=== PATIENT | male | born 1975 | race Caucasian/White ===

== ENCOUNTER 2017-12-03 19:44 | Observation (INO) ==
[2017-12-03] MEDS ORDERED: LOMOTIL PO PRN (22:24)
[2017-12-03] MEDS ORDERED: NS 1000 ML 1,000 ML IV ONE (22:24)
[2017-12-03 22:46] LABS: BASOPHILS % (AUTO) 0.3 % (0.2-1.0); EOSINOPHILS % (AUTO) 0.1 % (0.9-2.9); HEMATOCRIT 39.7 % (42.0-54.0); HEMOGLOBIN 13.6 g/dL (13.5-18.0); LYMPHOCYTES # (AUTO) 0.8 X10^3/uL (1.3-2.9); LYMPHOCYTES % (AUTO) 15.8 % (21.0-51.0); MEAN CORPUSCULAR HEMOGLOBIN 28.1 pg (27.0-34.0); MEAN CORPUSCULAR HGB CONC 34.3 g/dL (33.0-35.0); MEAN PLATELET VOLUME 6.7 fL (7.4-11.0); MONOCYTES # (AUTO) 0.6 x10^3/uL (0.3-0.8); MONOCYTES % (AUTO) 11.1 % (0.0-13.0); NEUTROPHILS # (AUTO) 3.8 x10^3/uL (2.2-4.8); NEUTROPHILS % (AUTO) 72.7 % (42.0-75.0); PLATELET COUNT 226 X10^3/uL (150.0-450.0); RED BLOOD COUNT 4.84 X10^6/uL (4.7-6.0); RED CELL DISTRIBUTION WIDTH 13.4 % (11.6-16.5); WHITE BLOOD COUNT 5.3 X10^3/uL (3.6-10.0)
[2017-12-03] MEDS ORDERED: TYLENOL SUPP 650 MG PR PRN (22:58)
[2017-12-03 23:01] LABS: ALANINE AMINOTRANSFERASE 28 Units/L (12-78); ALBUMIN 3.2 g/dL (3.4-5.0); ALKALINE PHOSPHATASE 85 Units/L (46-116); ASPARTATE AMINO TRANSFERASE 21 Units/L (15-37); BLOOD UREA NITROGEN 8 mg/dL (7-18); CALCIUM 8.3 mg/dL (8.5-10.1); CARBON DIOXIDE 28.7 mmol/L (21-32); CHLORIDE 101 mmol/L (98-107); COR CA(FOR HYPOALB) 8.9 mg/dL (8.5-10.1); CREATININE 1.43 mg/dL (0.70-1.30); SODIUM 137 mmol/L (136-145); TOTAL PROTEIN 6.7 g/dL (6.4-8.2); eGFR NON BLACK RACES 58 (>60)
[2017-12-03 23:21] LABS: ERYTHROCYTE SEDIMENTATION RATE 24 MM/HOUR (0-15)
[2017-12-03] MEDS: BENTYL CAP 10 MG PO SCH (23:36)
[2017-12-03] MEDS: ZOFRAN INJ 4 MG VIAL IVP PRN (23:36)
[2017-12-03] MEDS: TYLENOL 325 MG TAB PO PRN (23:37)
[2017-12-04] MEDS ORDERED: NS 1000 ML 1,000 ML ONE ×2 (00:49→05:58)
[2017-12-04] MEDS: NS 1000 ML 1,000 ML with MVI INJ (ADULT) 1 ML IV SCH ×10 (00:57→19:21)
[2017-12-04 01:10] LABS: BILIRUBIN,URINE NEGATIVE (NEGATIVE); BLOOD/HEMOGLOBIN,URINE NEGATIVE (NEGATIVE); GLUCOSE, URINE NEGATIVE (NEGATIVE); KETONES,URINE NEGATIVE (NEGATIVE); LEUKOCYTE ESTERASE ,URINE 1+ (NEGATIVE); NITRITES,URINE NEGATIVE (NEGATIVE); PROTEIN,URINE 1+ (NEGATIVE); UROBILINOGEN,URINE NORMAL (NORMAL)
[2017-12-04 01:19] LABS: APPEARANCE,URINE CLEAR (CLEAR); COLOR,URINE YELLOW (YELLOW); RBC,URINE NONE SEEN /HPF (NONE SEEN)
[2017-12-04 01:20] LABS: BACTERIA,URINE NEGATIVE /HPF (NEGATIVE); MUCUS,URINE FEW /HPF (NEGATIVE); SQUAMOUS EPITHELIAL CELL,UR RARE /HPF (NEGATIVE)
[2017-12-04 01:48] LABS: STOOL FOR WBC POSITIVE (NEGATIVE)
[2017-12-04 02:21] LABS: CRYPTOSPORIDIUM PARVUM ANTIGEN NEGATIVE (NEGATIVE); GIARDIA LAMBLIA ANTIGEN NEGATIVE (NEGATIVE)
[2017-12-04 02:26] VITALS: BMI 43.5
[2017-12-04 06:06] LABS: BASOPHILS % (AUTO) 0.5 % (0.2-1.0); EOSINOPHILS % (AUTO) 0.5 % (0.9-2.9); HEMATOCRIT 37.3 % (42.0-54.0); HEMOGLOBIN 12.8 g/dL (13.5-18.0); LYMPHOCYTES # (AUTO) 1.2 X10^3/uL (1.3-2.9); LYMPHOCYTES % (AUTO) 22.6 % (21.0-51.0); MEAN CORPUSCULAR HEMOGLOBIN 28.3 pg (27.0-34.0); MEAN CORPUSCULAR HGB CONC 34.2 g/dL (33.0-35.0); MEAN CORPUSCULAR VOLUME 82.6 fL (80.0-100.0); MEAN PLATELET VOLUME 7.1 fL (7.4-11.0); MONOCYTES # (AUTO) 0.7 x10^3/uL (0.3-0.8); MONOCYTES % (AUTO) 13.3 % (0.0-13.0); NEUTROPHILS # (AUTO) 3.4 x10^3/uL (2.2-4.8); NEUTROPHILS % (AUTO) 63.1 % (42.0-75.0); PLATELET COUNT 212 X10^3/uL (150.0-450.0); RED BLOOD COUNT 4.52 X10^6/uL (4.7-6.0); RED CELL DISTRIBUTION WIDTH 13.2 % (11.6-16.5); WHITE BLOOD COUNT 5.3 X10^3/uL (3.6-10.0)
[2017-12-04 06:21] LABS: ALANINE AMINOTRANSFERASE 26 Units/L (12-78); ALBUMIN 2.9 g/dL (3.4-5.0); ALKALINE PHOSPHATASE 75 Units/L (46-116); ASPARTATE AMINO TRANSFERASE 21 Units/L (15-37); BLOOD UREA NITROGEN 7 mg/dL (7-18); CALCIUM 8.1 mg/dL (8.5-10.1); CARBON DIOXIDE 27.8 mmol/L (21-32); CHLORIDE 104 mmol/L (98-107); CREATININE 1.25 mg/dL (0.70-1.30); SODIUM 139 mmol/L (136-145); TOTAL PROTEIN 5.9 g/dL (6.4-8.2); eGFR NON BLACK RACES > 60 (>60)
[2017-12-04] MEDS: TYLENOL 325 MG TAB PO PRN (06:41)
[2017-12-04] MEDS: ZOFRAN INJ 4 MG VIAL IVP PRN ×2 (06:42→11:37)
[2017-12-04] MEDS: BENTYL CAP 10 MG PO SCH ×4 (09:48→20:29)
[2017-12-04] MEDS: EFFEXOR XR 37.5 MG CAP PO SCH (14:19)
[2017-12-04] MEDS: ZESTORETIC 10/ 12.5MG PO SCH (14:19)
[2017-12-04] MEDS: TOPROL XL PO SCH (14:19)
[2017-12-04] MEDS ORDERED: KLONOPIN TAB 0.5 MG PO SCH (21:00)
[2017-12-05 06:13] LABS: BASOPHILS % (AUTO) 0.3 % (0.2-1.0); EOSINOPHILS # (AUTO) 0.1 x10^3/uL (0.0-0.2); EOSINOPHILS % (AUTO) 1.5 % (0.9-2.9); HEMATOCRIT 35.8 % (42.0-54.0); HEMOGLOBIN 12.3 g/dL (13.5-18.0); LYMPHOCYTES # (AUTO) 1.2 X10^3/uL (1.3-2.9); LYMPHOCYTES % (AUTO) 24.1 % (21.0-51.0); MEAN CORPUSCULAR HEMOGLOBIN 28.1 pg (27.0-34.0); MEAN CORPUSCULAR HGB CONC 34.4 g/dL (33.0-35.0); MEAN CORPUSCULAR VOLUME 81.9 fL (80.0-100.0); MONOCYTES # (AUTO) 0.7 x10^3/uL (0.3-0.8); NEUTROPHILS # (AUTO) 3.2 x10^3/uL (2.2-4.8); NEUTROPHILS % (AUTO) 61.1 % (42.0-75.0); PLATELET COUNT 215 X10^3/uL (150.0-450.0); RED BLOOD COUNT 4.37 X10^6/uL (4.7-6.0); RED CELL DISTRIBUTION WIDTH 13.4 % (11.6-16.5); WHITE BLOOD COUNT 5.2 X10^3/uL (3.6-10.0)
[2017-12-05 06:36] LABS: ALANINE AMINOTRANSFERASE 26 Units/L (12-78); ALBUMIN 2.7 g/dL (3.4-5.0); ALKALINE PHOSPHATASE 68 Units/L (46-116); ASPARTATE AMINO TRANSFERASE 20 Units/L (15-37); BLOOD UREA NITROGEN 5 mg/dL (7-18); CALCIUM 8.2 mg/dL (8.5-10.1); CARBON DIOXIDE 26.7 mmol/L (21-32); CHLORIDE 104 mmol/L (98-107); COR CA(FOR HYPOALB) 9.2 mg/dL (8.5-10.1); CREATININE 0.99 mg/dL (0.70-1.30); SODIUM 138 mmol/L (136-145); TOTAL PROTEIN 5.9 g/dL (6.4-8.2); eGFR NON BLACK RACES > 60 (>60)
[2017-12-05] MEDS: BENTYL CAP 10 MG PO SCH (09:06)
[2017-12-05] MEDS: TOPROL XL PO SCH (09:07)
[2017-12-05] MEDS: EFFEXOR XR 37.5 MG CAP PO SCH (09:07)
[2017-12-05] MEDS: ZESTORETIC 10/ 12.5MG PO SCH (09:07)
[2017-12-05 13:16] VITALS: BP 108/71
== END 2017-12-05 14:00 | disposition home or self-care (01) ==
LOC: MED/SURG
PROVIDERS: ADMIT Internal Medicine; ATTEND Internal Medicine
DX: R19.7 Diarrhea, unspecified; R50.9 Fever, unspecified; R79.82 Elevated C-reactive protein (CRP); R70.0 Elevated erythrocyte sedimentation rate; R94.4 Abnormal results of kidney function studies; R19.5 Other fecal abnormalities; K52.89 Other specified noninfective gastroenteritis and colitis; R11.2 Nausea with vomiting, unspecified
CPT/HCPCS: 36415; 80053; 81001; 82270; 82670; 83630; 84403; 85025; 85652; 86140; 87045; 87328; 87329; 87427; 87449; 87493; 87899; 96374; A4216; A4222; G0378; J2405; J3490; J7030

== ENCOUNTER 2021-11-24 16:34 | Observation (INO) ==
[2021-11-24] MEDS ORDERED: NS 1,000 ML IV 1,000 ML IV SCH (17:00)
[2021-11-24 18:43] LABS: ALANINE AMINOTRANSFERASE 22 Units/L (12-78); ALBUMIN 3.3 g/dL (3.4-5.0); ALKALINE PHOSPHATASE 90 Units/L (46-116); ASPARTATE AMINO TRANSFERASE 29 Units/L (15-37); BLOOD UREA NITROGEN 24 mg/dL (7-18); CALCIUM 8.2 mg/dL (8.5-10.1); CARBON DIOXIDE 23.8 mmol/L (21-32); CHLORIDE 102 mmol/L (98-107); COR CA(FOR HYPOALB) 8.8 mg/dL (8.5-10.1); CREATININE 1.47 mg/dL (0.70-1.30); SODIUM 135 mmol/L (136-145); TOTAL PROTEIN 7.1 g/dL (6.4-8.2); eGFR NON BLACK RACES 55 (>60)
[2021-11-24 18:45] LABS: BASOPHILS % (AUTO) 0.5 % (0.2-1.0); EOSINOPHILS # (AUTO) 0.1 x10^3/uL (0.0-0.2); EOSINOPHILS % (AUTO) 2.1 % (0.9-2.9); HEMATOCRIT 33.3 % (42.0-54.0); HEMOGLOBIN 10.8 g/dL (13.5-18.0); LYMPHOCYTES # (AUTO) 0.9 X10^3/uL (1.3-2.9); LYMPHOCYTES % (AUTO) 15.8 % (21.0-51.0); MEAN CORPUSCULAR HEMOGLOBIN 23.6 pg (27.0-34.0); MEAN CORPUSCULAR HGB CONC 32.5 g/dL (33.0-35.0); MEAN CORPUSCULAR VOLUME 72.6 fL (80.0-100.0); MEAN PLATELET VOLUME 8.1 fL (7.4-11.0); MONOCYTES # (AUTO) 0.9 x10^3/uL (0.3-0.8); MONOCYTES % (AUTO) 15.2 % (0.0-13.0); NEUTROPHILS # (AUTO) 3.9 x10^3/uL (2.2-4.8); NEUTROPHILS % (AUTO) 66.4 % (42.0-75.0); RED BLOOD COUNT 4.58 X10^6/uL (4.7-6.0); RED CELL DISTRIBUTION WIDTH 17.3 % (11.6-16.5); WHITE BLOOD COUNT 5.9 X10^3/uL (3.6-10.0)
[2021-11-24] MEDS ORDERED: BENTYL CAP 10 MG PO ONE (18:52)
[2021-11-24 18:54] LABS: MICROCYTOSIS SLIGHT; PLATELET MORPHOLOGY COMMENT NORMAL (NORMAL)
[2021-11-24 18:54] LABS: CRYPTOSPORIDIUM PARVUM ANTIGEN NEGATIVE (NEGATIVE); GIARDIA LAMBLIA ANTIGEN NEGATIVE (NEGATIVE)
[2021-11-24 18:58] LABS: BILIRUBIN,URINE NEGATIVE (NEGATIVE); BLOOD/HEMOGLOBIN,URINE NEGATIVE (NEGATIVE); GLUCOSE, URINE NEGATIVE (NEGATIVE); KETONES,URINE NEGATIVE (NEGATIVE); LEUKOCYTE ESTERASE ,URINE NEGATIVE (NEGATIVE); NITRITES,URINE NEGATIVE (NEGATIVE); PROTEIN,URINE 2+ (NEGATIVE); UROBILINOGEN,URINE NORMAL (NORMAL)
[2021-11-24 18:59] LABS: APPEARANCE,URINE CLEAR (CLEAR); COLOR,URINE YELLOW (YELLOW)
[2021-11-24 19:09] LABS: BACTERIA,URINE TRACE /HPF (NEGATIVE); RBC,URINE NONE SEEN /HPF (0-3); SQUAMOUS EPITHELIAL CELL,UR RARE /HPF (NEGATIVE)
[2021-11-24] MEDS ORDERED: NS 1,000 ML IV 1,000 ML IV ONE (23:57)
[2021-11-25] MEDS ORDERED: NS 1,000 ML IV 1,000 ML IV ONE (01:08)
[2021-11-25] MEDS: NS 1,000 ML IV 1,000 ML IV SCH ×3 (02:30→20:05)
[2021-11-25 05:15] LABS: BASOPHILS % (AUTO) 0.6 % (0.2-1.0); EOSINOPHILS # (AUTO) 0.1 x10^3/uL (0.0-0.2); EOSINOPHILS % (AUTO) 2.7 % (0.9-2.9); HEMATOCRIT 27.3 % (42.0-54.0); HEMOGLOBIN 9.1 g/dL (13.5-18.0); LYMPHOCYTES # (AUTO) 0.8 X10^3/uL (1.3-2.9); LYMPHOCYTES % (AUTO) 20.6 % (21.0-51.0); MEAN CORPUSCULAR HEMOGLOBIN 24.3 pg (27.0-34.0); MEAN CORPUSCULAR HGB CONC 33.5 g/dL (33.0-35.0); MEAN CORPUSCULAR VOLUME 72.6 fL (80.0-100.0); MEAN PLATELET VOLUME 7.3 fL (7.4-11.0); MONOCYTES # (AUTO) 0.6 x10^3/uL (0.3-0.8); MONOCYTES % (AUTO) 15.5 % (0.0-13.0); NEUTROPHILS # (AUTO) 2.4 x10^3/uL (2.2-4.8); NEUTROPHILS % (AUTO) 60.6 % (42.0-75.0); RED BLOOD COUNT 3.76 X10^6/uL (4.7-6.0); RED CELL DISTRIBUTION WIDTH 17.3 % (11.6-16.5); WHITE BLOOD COUNT 3.9 X10^3/uL (3.6-10.0)
[2021-11-25 05:22] LABS: ALANINE AMINOTRANSFERASE 15 Units/L (12-78); ALBUMIN 2.6 g/dL (3.4-5.0); ALKALINE PHOSPHATASE 70 Units/L (46-116); ASPARTATE AMINO TRANSFERASE 15 Units/L (15-37); BLOOD UREA NITROGEN 18 mg/dL (7-18); CALCIUM 7.4 mg/dL (8.5-10.1); CARBON DIOXIDE 24.4 mmol/L (21-32); CHLORIDE 105 mmol/L (98-107); COR CA(FOR HYPOALB) 8.5 mg/dL (8.5-10.1); CREATININE 1.33 mg/dL (0.70-1.30); MAGNESIUM 1.7 mg/dL (1.7-2.9); SODIUM 137 mmol/L (136-145); TOTAL PROTEIN 5.6 g/dL (6.4-8.2); eGFR NON BLACK RACES > 60 (>60)
[2021-11-25 05:54] LABS: ANISOCYTOSIS SLIGHT; HYPOCHROMASIA SLIGHT; MICROCYTOSIS SLIGHT; PLATELET MORPHOLOGY COMMENT NORMAL (NORMAL)
[2021-11-25 05:55] LABS: OVALOCYTES SLIGHT
[2021-11-25] MEDS ORDERED: POTASSIUM CHL 40 MEQ/NS 0.45% 500 ML IV PRN (05:58)
[2021-11-25] MEDS ORDERED: KLOR-CON PO PRN (05:58)
[2021-11-25] MEDS ORDERED: K-RIDER 10 MEQ/NS 100 ML 10 MEQ/100 ML BAG IV PRN (05:58)
[2021-11-25] MEDS ORDERED: POTASSIUM CHLORIDE LIQ 20 MEQ UDC PO PRN (05:58)
[2021-11-25] MEDS ORDERED: K-DUR TAB 20 MEQ PO PRN (05:58)
[2021-11-25] MEDS ORDERED: MICRO K EXTEN CAP 10 MEQ PO PRN (05:58)
[2021-11-25] MEDS ORDERED: POTASSIUM CHL 60 MEQ/NS 0.45% 500 ML IV PRN (05:58)
--- NOTE | 2021-11-25 06:11 | RAD ---
HISTORYAbdominal cramping, diarrheaSTUDYAP abdomenCOMPARISONNoneFINDINGSAbdominal gas pattern is nonspecific and nonobstructive. No abnormal masses or abnormal calcifications are identified. Postsurgical changes are present in the lower lumbar spine, lumbosacral junction and bilateral SI joints with hardware present. Regional skeleton is otherwise intact.IMPRESSIONUnremarkable AP abdomenElectronically signed by: CINDA DORAN (Nov 25, 2021 06:10:16)
[2021-11-25] MEDS: MAGNESIUM SULFATE 1 GRAM/100 mL PREMIX 1 G/100 ML BAG IV PRN ×2 (08:35→09:52)
[2021-11-25] MEDS: BENTYL CAP 10 MG PO SCH ×5 (11:20→21:21)
[2021-11-25] MEDS: LEVSIN/MAALOX/LIDOC VISC PO SCH ×4 (11:20→20:20)
[2021-11-25] MEDS: PEPCID 20 MG VIAL 20 MG in NS 50 ML IV 50 ML IV SCH ×2 (11:21→20:20)
[2021-11-25] MEDS: PROTONIX INJ 40 MG VIAL IVP SCH ×2 (11:22→20:20)
[2021-11-25] MEDS: CIPRO IV 400 MG PREMIX* 400 MG/200 ML IV.SOLN. IV SCH ×2 (12:49→20:20)
--- NOTE | 2021-11-25 13:12 | DR.UPDATE ---
H&P Update History and Physical Update: History and Physical reviewed and patient examined. Changes noted: NO Yes with the following: PATIENT WAS A DIRECT ADMISSION FOR TREATMENT OF DEHYDRATION, HYPOKALEMIA, AND INTRACTABLE DIARRHEA. ADDITIONALLY, PATIENT REPORTS WEIGHT LOSS. EXAMINATION REVEALED A 1X1 CM HARD MASS TO THE RIGHT SIDE SUBMANDIBULAR CERVICAL LYMPH NODE. ON ADMISSION, VITALS WERE: 97.8-72-18-100%-157/79. LABS WERE OBTAINED. WBC 5.9, RBC 4.58, HGB 10.8, HCT 33.3, PLT 233, SODIUM 137, POTASSIUM 3.7, CHLORIDE 102, BUN 24, CREATININE 1.47, GLUCOSE 96, CALCIUM 8.2, TOTAL BILI 0.40, AST 29, ALT 22, ALK PHOS 90, TOTAL PROTEIN 7.1, ALBUMIN 3.3. URINALYSIS WAS UNREMARKABLE. STOOL STUDIES WERE POSITIVE FOR OCCULT BLOOD AND WHITE CELLS. A STOOL CULTURE WAS SET UP. COVID-19, INFLUENZA, AND RSV WERE OBTAINED IN THE ER ON 11/23 AND WERE NEGATIVE. A KUB WAS OBTAINED AND WAS UNREMARKABLE. HE WAS STARTED ON NORMAL SALINE AT 80 ML/HR, CIPRO 400MG IV Q12H, PEPCID 20MG IV Q12H, PROTONIX 40MG IV BID, GI COCKTAIL 15ML PO BID, BENTYL 20MG PO QID, AND THE POTASSIUM AND MAGNESIUM PROTOCOLS. DURING THE NIGHT ON THE DAY OF ADMISSION, PATIENT WAS NOTED TO BE HYPOTENSIVE. HIS BLOOD PRESSURE WERE PERSISTENTLY RUNNING 80s/40s. HE WAS ADMINISTERED A NORMAL SALINE BOLUS X 2 LITERS. MAINTENANCE FLUIDS WERE THEN ORDERED TO RUN AT 175 ML/HR BY , THE CST PHYSICIAN. THIS MORNING, HIS BLOOD PRESSURE WAS 110/58. WE WILL DECREASE IV FLUIDS TO 125 ML/HR. WE WILL OBTAIN A SOFT TISSUE NECK CT WITH CONTRAST. OTHERWISE, WE WILL FOLLOW-UP WITH AM LABS AND CONTINUE TO MONITOR. TIME SPENT ON CLINICAL ASSESSMENT, REVIWING LABS AND IMAGING, DECISION MAKING, AND DOCUMENTATION GREATER THAN 75 MINUTES. H&P Reviewed: Yes Patient was examined?: Yes
--- NOTE | 2021-11-25 13:12 | CT ---
HISTORYRT SUBMANDIBULAR MASS .brAFFECTED SIDE KENA WITH BEEBEESSTUDYSOFT TISSUE NECK WITH CONCOMPARISONNoneTECHNIQUEMultiple axial images of the neck soft tissues were obtained with IV contrast. Coronal and sagittal reformats were made and reviewed. Dose reduction techniques included Automated Exposure Control (AEC) and adjustment of mA and kV.FINDINGSThe technologist placed a BB marker overlying the palpable abnormality. The BB marker is superficial to a soft tissue nodule inferior to the right parotid gland near the posterior angle of the mandible. This measures about 19 mm by 21 mm by 14 mm.This might lie within the substance of lower margin of the parotid gland and could be parotid origin tumor. Or it could be a large level 2 lymph node. This might require fine-needle aspiration for definitive diagnosis.There are other small lymph nodes in the left and right neck. These are evenly distributed and are not enlarged.Otherwise the salivary glands have normal size and enhancement.The thyroid has a normal size and configuration.No fluid in the sinuses or mucosal thickening to suggest sinusitis. There is no mastoid effusion. Small cyst in the right maxillary sinus.The adenoids, tonsils, soft palate, epiglottis, and prevertebral soft tissues are not enlarged. Vocal cords are symmetric near the midline.Lung apices are clear. No significant bone abnormality.IMPRESSION1. (21 mm) nodule in the right neck, see noteElectronically signed by: Hola Box (Nov 25, 2021 13:10:27)
[2021-11-25] MEDS ORDERED: NORCO 5/325 MG TAB PO PRN (19:50)
[2021-11-26] MEDS: NS 1,000 ML IV 1,000 ML IV SCH ×5 (01:35→22:00)
[2021-11-26 05:43] LABS: BASOPHILS % (AUTO) 0.7 % (0.2-1.0); EOSINOPHILS # (AUTO) 0.1 x10^3/uL (0.0-0.2); EOSINOPHILS % (AUTO) 2.8 % (0.9-2.9); HEMATOCRIT 28.7 % (42.0-54.0); HEMOGLOBIN 9.4 g/dL (13.5-18.0); LYMPHOCYTES # (AUTO) 1.1 X10^3/uL (1.3-2.9); LYMPHOCYTES % (AUTO) 27.5 % (21.0-51.0); MEAN CORPUSCULAR HEMOGLOBIN 23.7 pg (27.0-34.0); MEAN CORPUSCULAR HGB CONC 32.8 g/dL (33.0-35.0); MEAN CORPUSCULAR VOLUME 72.2 fL (80.0-100.0); MEAN PLATELET VOLUME 7.5 fL (7.4-11.0); MONOCYTES # (AUTO) 0.6 x10^3/uL (0.3-0.8); MONOCYTES % (AUTO) 15.5 % (0.0-13.0); NEUTROPHILS # (AUTO) 2.2 x10^3/uL (2.2-4.8); NEUTROPHILS % (AUTO) 53.5 % (42.0-75.0); RED BLOOD COUNT 3.98 X10^6/uL (4.7-6.0); RED CELL DISTRIBUTION WIDTH 16.8 % (11.6-16.5); WHITE BLOOD COUNT 4.1 X10^3/uL (3.6-10.0)
[2021-11-26 06:04] LABS: ALANINE AMINOTRANSFERASE 18 Units/L (12-78); ALBUMIN 2.8 g/dL (3.4-5.0); ALKALINE PHOSPHATASE 73 Units/L (46-116); ANISOCYTOSIS SLIGHT; ASPARTATE AMINO TRANSFERASE 14 Units/L (15-37); BLOOD UREA NITROGEN 10 mg/dL (7-18); CALCIUM 7.9 mg/dL (8.5-10.1); CARBON DIOXIDE 28.3 mmol/L (21-32); CHLORIDE 105 mmol/L (98-107); COR CA(FOR HYPOALB) 8.9 mg/dL (8.5-10.1); CREATININE 1.14 mg/dL (0.70-1.30); HYPOCHROMASIA SLIGHT; MICROCYTOSIS SLIGHT; OVALOCYTES SLIGHT; PLATELET MORPHOLOGY COMMENT NORMAL (NORMAL); SODIUM 139 mmol/L (136-145); TOTAL PROTEIN 6.1 g/dL (6.4-8.2); eGFR NON BLACK RACES > 60 (>60)
[2021-11-26] MEDS: CIPRO IV 400 MG PREMIX* 400 MG/200 ML IV.SOLN. IV SCH ×2 (08:50→22:00)
[2021-11-26] MEDS: BENTYL CAP 10 MG PO SCH ×4 (08:50→21:12)
[2021-11-26] MEDS: LEVSIN/MAALOX/LIDOC VISC PO SCH ×4 (08:51→21:10)
[2021-11-26] MEDS: PEPCID 20 MG VIAL 20 MG in NS 50 ML IV 50 ML IV SCH ×2 (08:51→21:10)
[2021-11-26] MEDS: PROTONIX INJ 40 MG VIAL IVP SCH ×2 (08:52→21:10)
[2021-11-26] MEDS ORDERED: ZOFRAN TAB 4 MG PO PRN (11:42)
[2021-11-26] MEDS ORDERED: ZANAFLEX PO PRN (11:42)
[2021-11-26] MEDS ORDERED: XYLOCAINE 1 % (PLAIN) ONE (11:44)
[2021-11-26] MEDS: NEURONTIN CAP 300 MG PO SCH ×2 (14:22→21:11)
[2021-11-26] MEDS: VOLTAREN 1 % GEL MULTI DOSE TUBE TOP SCH ×2 (14:23→21:14)
[2021-11-26] MEDS ORDERED: SINGULAIR TAB 10 MG PO SCH (21:00)
[2021-11-26] MEDS ORDERED: AMBIEN PO SCH (21:00)
[2021-11-26] MEDS ORDERED: TRIHEXYPHENIDYL 2 MG PO PRN (21:00)
[2021-11-26] MEDS ORDERED: BREXPIPRAZOLE 2 MG PO SCH (21:00)
[2021-11-27] MEDS: NS 1,000 ML IV 1,000 ML IV SCH (02:00)
[2021-11-27 04:38] VITALS: BP 128/70
[2021-11-27] MEDS: NEURONTIN CAP 300 MG PO SCH (05:43)
[2021-11-27] MEDS: VOLTAREN 1 % GEL MULTI DOSE TUBE TOP SCH (05:44)
[2021-11-27 06:42] LABS: BASOPHILS % (AUTO) 0.6 % (0.2-1.0); EOSINOPHILS # (AUTO) 0.1 x10^3/uL (0.0-0.2); EOSINOPHILS % (AUTO) 2.6 % (0.9-2.9); HEMATOCRIT 27.5 % (42.0-54.0); HEMOGLOBIN 9.1 g/dL (13.5-18.0); LYMPHOCYTES # (AUTO) 1.3 X10^3/uL (1.3-2.9); MEAN CORPUSCULAR HEMOGLOBIN 24.1 pg (27.0-34.0); MEAN CORPUSCULAR HGB CONC 33.2 g/dL (33.0-35.0); MEAN CORPUSCULAR VOLUME 72.6 fL (80.0-100.0); MEAN PLATELET VOLUME 7.4 fL (7.4-11.0); MONOCYTES # (AUTO) 0.5 x10^3/uL (0.3-0.8); MONOCYTES % (AUTO) 10.8 % (0.0-13.0); NEUTROPHILS # (AUTO) 2.3 x10^3/uL (2.2-4.8); RED BLOOD COUNT 3.79 X10^6/uL (4.7-6.0); RED CELL DISTRIBUTION WIDTH 16.8 % (11.6-16.5); WHITE BLOOD COUNT 4.2 X10^3/uL (3.6-10.0)
[2021-11-27 06:57] LABS: ALANINE AMINOTRANSFERASE 19 Units/L (12-78); ALBUMIN 2.5 g/dL (3.4-5.0); ALKALINE PHOSPHATASE 68 Units/L (46-116); ASPARTATE AMINO TRANSFERASE 18 Units/L (15-37); BLOOD UREA NITROGEN 10 mg/dL (7-18); CALCIUM 7.7 mg/dL (8.5-10.1); CARBON DIOXIDE 27.7 mmol/L (21-32); CHLORIDE 107 mmol/L (98-107); COR CA(FOR HYPOALB) 8.9 mg/dL (8.5-10.1); SODIUM 140 mmol/L (136-145); TOTAL PROTEIN 5.7 g/dL (6.4-8.2); eGFR NON BLACK RACES > 60 (>60)
[2021-11-27 07:50] LABS: HYPOCHROMASIA SLIGHT; PLATELET MORPHOLOGY COMMENT NORMAL (NORMAL)
[2021-11-27 07:51] LABS: ANISOCYTOSIS SLIGHT; MICROCYTOSIS SLIGHT; OVALOCYTES SLIGHT
[2021-11-27] MEDS ORDERED: EFFEXOR XR 150 MG CAP 24-HR PO SCH (09:00)
[2021-11-27] MEDS: PEPCID 20 MG VIAL 20 MG in NS 50 ML IV 50 ML IV SCH (09:24)
[2021-11-27] MEDS: BENTYL CAP 10 MG PO SCH (09:24)
[2021-11-27] MEDS: LEVSIN/MAALOX/LIDOC VISC PO SCH (09:25)
[2021-11-27] MEDS: PROTONIX INJ 40 MG VIAL IVP SCH (09:25)
[2021-11-27] MEDS: CIPRO IV 400 MG PREMIX* 400 MG/200 ML IV.SOLN. IV SCH (09:26)
--- NOTE | 2021-11-27 11:05 | PCM.PROG ---
Progress Note - Progress Note for Day of Date of Exam: 11/26/21 - Subjective Subjective: WAS ADMITTED FOR TREATMENT OF DEHYDRATION, HYPOKALEMIA, INTRACTABLE DIARRHEA, AND MASS TO THE RIGHT SIDE OF NECK. TODAY, HE IS ALERT AND ORIENTED, LYING IN BED ON MORNING ROUNDS. HE COMPLAINS OF DIFFUSE ABDOMINAL CRAMPING AND GENERALIZED WEAKNESS THIS MORNING. HE CONTINUES TO REPORT DIARRHEA, BUT REPORTS THAT IT HAS DECREASED SINCE ADMISSION. ON EXAMINATION, HARD MASS PALPATED TO THE RIGHT SIDE SUBMANDIBULAR CERVICAL LYMPH NODE. HEART IS REGULAR IN RATE AND RHYTHM. BILATERAL LUNGS ARE CLEAR TO AUSCULTATION. ABDOMEN IS ROUND, SOFT, AND NOTED WITH HYPERACTIVE BOWEL SOUNDS. NO UPPER OR LOWER EXTREMITY EDEMA NOTED. HIS VITALS THIS MORNING ARE: 97.9-60-18-99%-114/65. LABS WERE OBTAINED. WBC 4.1, RBC 3.98, HGB 9.4, HCT 28.7, PLT COUNT 187, SODIUM 139, POTASSIUM 3.7, CHLORIDE 105, BUN 10, CREATININE 1.14, GLUCOSE 87, CALCIUM 7.9, TOTAL BILI 0.10, AST 14, ALT 18, ALK PHOS 73, TOTAL PROTEIN 6.1, ALBUMIN 2.8. A SOFT TISSUE NECK CT WITH CONTRAST WAS OBTAINED YESTERDAY. IT REVEALED: The technologist placed a BB marker overlying the palpable abnormality. The BB marker is superficial to a soft tissue nodule inferior to the right parotid gland near the posterior angle of the mandible. This measures about 19 mm by 21 mm by 14 mm. This might lie within the substance of lower margin of the parotid gland and could be parotid origin tumor. Or it could be a large level 2 lymph node. This might require fine-needle aspiration for definitive diagnosis. There are other small lymph nod es in the left and right neck. These are evenly distributed and are not enlarged. Otherwise the salivary glands have normal size and enhancement. The thyroid has a normal size and configuration. No fluid in the sinuses or mucosal thickening to suggest sinusitis. There is no mastoid effusion. Small cyst in the right maxillary sinus. The adenoids, tonsils, soft palate, epiglottis, and prevertebral soft tissues are not enlarged. Vocal cords are symmetric near the midline. Lung apices are clear. No significant bone abnormality. HE IS CURRENTLY RECEIVING NORMAL SALINE AT 125 ML/HR, CIPRO 400MG IV Q12H, PEPCID 20MG IV Q12H, PROTONIX 40MG IV BID, GI COCKTAIL 15ML PO BID, BENTYL 20MG PO QID, AND THE POTASSIUM AND MAGNESIUM PROTOCOLS. WE WILL CONTINUE CURRENT PLAN OF CARE TODAY. WE WILL ALSO CONSULT DR. LAI FOR FINE NEEDLE ASPIRATION OF MASS TO RIGHT SIDE NECK. OTHERWISE, WE PLAN TO FOLLOW-UP WITH AM LABS AND CONTINUE TO MONITOR. TIME SPENT ON CLINICAL ASSESSMENT, REVIWING LABS AND IMAGING, DECISION MAKING, AND DOCUMENTATION GREATER THAN 45 MINUTES. - Past Medical Family Social History Past Med/Fam/Surg Hx: No changes since H&P Allergies: Allergies No Known Drug Allergies Allergy (Verified 12/03/17 22:26) - Review of Systems ROS: No change since H&P - Vital Signs and I&O's Vital Signs: Temperature 97.8 F Pulse Rate [Left] 66 Respiratory Rate 18 Blood Pressure [Right Arm] 128/70 Blood Pressure [Left Arm] 88/60 O2 Sat by Pulse Oximetry 100 Intake and Output: Intake & Output 11/24/21 11/25/21 11/26/21 11/27/21 11:59 11:59 11:59 11:59 Intake Total 4323 / 4323 5156 / 5156 4837 / 4837 Output Total 0 / 0 Balance 4323 / 4323 5156 / 5156 4837 / 4837 - Physical Exam Oriented: Normal Eyes: Normal Ear: Normal Nose: Normal Throat: Normal Respiratory: Normal Cardiovascular: Normal : Normal Auscultation: Bowel Sounds: Increased Palpation: Normal Tenderness: Diffuse, Mild Skin: Other (21 MM MASS TO RIGHT SIDE SUBMANDIBULAR CERVICAL LYMPH NODE) Musculoskeletal: Normal Psychiatric: Normal Mood Description: Calm Affect: Normal Speech Pattern: Clear, Appropriate - Laboratory and Diagnostics Result Diagrams: 11/27/21 06:22 11/27/21 06:22 Labs: 11/24/21 17:40 Stool Stool Culture - Final 11/24/21 17:40 Stool - Final Laboratory WBC 4.2 X10^3/uL (3.6-10.0) 11/27/21 06:22 RBC 3.79 X10^6/uL (4.7-6.0) L 11/27/21 06:22 Hgb 9.1 g/dL (13.5-18.0) L 11/27/21 06: Hct 27.5 % (42.0-54.0) L 11/27/21 06: MCV 72.6 fL (80.0-100.0) L 11/27/21 06: MCH 24.1 pg (27.0-34.0) L 11/27/21 06: MCHC 33.2 g/dL (33.0-35.0) 11/27/21 06: RDW 16.8 % (11.6-16.5) H 11/27/21 06: Plt Count 194 X10^3/uL (150.0-450.0) 11/27/21 06: Plt Count Comment Adequate (ADEQUATE) 11/27/21 06: MPV 7.4 fL (7.4-11.0) 11/27/21: Neut % (Auto) 55.0 % (42.0-75.0) 11/27/21 06: Lymph % (Auto) 31.0 % (21.0-51.0) 11/27/21: [place] % (Auto) 10.8 % (0.0-13.0) 11/27/21 06: Eos % (Auto) 2.6 % (0.9-2.9) 11/27/21 06: Baso % (Auto) 0.6 % (0.2-1.0) 11/27/21: Neut # (Auto) 2.3 x10^3/uL (2.2-4.8) 11/27/21 06: Lymph # (Auto) 1.3 X10^3/uL (1.3-2.9) 11/27/21 06: [place] # (Auto) 0.5 x10^3/uL (0.3-0.8) 11/27/21 06: Eos # (Auto) 0.1 x10^3/uL (0.0-0.2) 11/27/21: Baso # (Auto) 0.0 X10^3/uL (0.0-0.1) 11/27/21 06: Absolute Nucleated RBC 0.0 /100WBC 11/27/21 06: Total Counted 100 11/24/21 17:45 Neutrophils % (Manual) 68 % (39-76) 11/24/21 17:45 Lymphocytes % (Manual) 26 % (13-43) 11/24/21 17:45 Monocytes % (Manual) 4 % (4-9) 11/24/21 17:45 Eosinophils % (Manual) 2 % (0-6) 11/24/21 17:45 Plt Morphology Comment Normal (NORMAL) 11/27/21 06:22 RBC Morphology Abnormal (NORMAL) 11/27/21 06:22 Hypochromasia Slight A 11/27/21 06:22 Anisocytosis Slight A 11/27/21 06:22 Microcytosis Slight A 11/27/21 06:22 Ovalocytes Slight A 11/27/21 06:22 Sodium 140 mmol/L (136-145) 11/27/21 06:22 Corrected Sodium TNP 11/27/21 06:22 Potassium 3.7 mmol/L (3.5-5.1) 11/27/21 06:22 Chloride 107 mmol/L (98-107) 11/27/21 06:22 Carbon Dioxide 27.7 mmol/L (21-32) 11/27/21 06:22 BUN 10 mg/dL (7-18) 11/27/21 06:22 Creatinine 1.20 mg/dL (0.70-1.30) 11/27/21 06:22 Est GFR (MDRD) Af Amer > 60 (>60) 11/27/21 06:22 Est GFR (MDRD) Non-Af > 60 (>60) 11/27/21 06:22 Glucose 87 mg/dL (65-99) 11/27/21 06:22 Calcium 7.7 mg/dL (8.5-10.1) L 11/27/21 06:22 Corrected Calcium 8.9 mg/dL (8.5-10.1) 11/27/21 06:22 Magnesium 1.7 mg/dL (1.7-2.9) 11/25/21 04:54 Iron 23 ug/dL (50-175) L 11/27/21 06:22 Transferrin 252 mg/dL (202-364) 11/27/21 06:22 Ferritin 30 ng/mL (26-388) 11/27/21 06:22 Total Bilirubin 0.10 mg/dL (0.2-1.0) L 11/27/21 06:22 AST 18 Units/L (15-37) 11/27/21 06:22 ALT 19 Units/L (12-78) 11/27/21 06:22 Alkaline Phosphatase 68 Units/L (46-116) 11/27/21 06:22 Total Protein 5.7 g/dL (6.4-8.2) L 11/27/21 06:22 Albumin 2.5 g/dL (3.4-5.0) L 11/27/21 06:22 Globulin 3.2 g/dL (2.5-4.5) 11/27/21 06:22 Albumin/Globulin Ratio 0.8 Ratio (1.1-2.1) L 11/27/21 06:22 Vitamin B12 879 pg/mL (193-986) 11/27/21 06:22 Folate 6.3 ng/mL (>8.6) L 11/27/21 06:22 Specimen Type Clean catch urine 11/24/21 18:47 Urine Color Yellow (YELLOW) 11/24/21 18:47 Urine Appearance Clear (CLEAR) 11/24/21 18:47 Urine pH 6.0 (5.0 - 8.0) 11/24/21 18:47 Ur Specific [place] 1.025 (1.000-1.030) 11/24/21 18:47 Urine Protein 2+ (NEGATIVE) 11/24/21 18:47 Urine Glucose (UA) Negative (NEGATIVE) 11/24/21 18:47 Urine Ketones Negative (NEGATIVE) 11/24/21 18:47 Urine Blood Negative (NEGATIVE) 11/24/21 18:47 Urine Nitrite Negative (NEGATIVE) 11/24/21 18:47 Urine Bilirubin Negative (NEGATIVE) 11/24/21 18:47 Urine Urobilinogen Normal (NORMAL) 11/24/21 18:47 Ur Leukocyte Esterase Negative (NEGATIVE) 11/24/21 18:47 Urine RBC None seen /HPF (0-3) 11/24/21 18:47 Urine WBC 0-2 /HPF (0-5) 11/24/21 18:47 Ur Squamous Epith Cells Rare /HPF (NEGATIVE) 11/24/21 18:47 Amorphous Sediment Trace /HPF (NEGATIVE) 11/24/21 18:47 Urine Bacteria Trace /HPF (NEGATIVE) 11/24/21 18:47 Urine Mucus Few /HPF (NEGATIVE) 11/24/21 18:47 Ur Culture Indicated? No/not indicated 11/24/21 18:47 Stool Description 150g liq-mucus brn 11/24/21 17:40 Stool Description 150g liq-mucus brn 11/24/21 17:40 Stl Occult Blood (IFOB) Positive (NEGATIVE) A 11/24/21 17:40 Stool for White Cells Positive (NEGATIVE) A 11/24/21 17:40 Stl C. diff Tox B Gene Negative (NEGATIVE) 11/24/21 17:40 Stl C. diff [id number] Presumptive negative (NEGATIVE) 11/24/21 17:40 Stool H. pylori Ag Negative (NEGATIVE) 11/24/21 17:40 Cryptosporid parvum Ag Negative (NEGATIVE) 11/24/21 17:40 Giardia lamblia Ag Negative (NEGATIVE) 11/24/21 17:40 Cytology Specimen To follow 11/26/21 12:15 - Plan (1) Dehydration Status: Acute Plan: NORMAL SALINE AT 125 ML/HR, CIPRO 400MG IV Q12H, PEPCID 20MG IV Q12H, PROTONIX 40MG IV BID, GI COCKTAIL 15ML PO BID, BENTYL 20MG PO QID, AND THE POTASSIUM AND MAGNESIUM PROTOCOLS. (2) Acute hypokalemia Status: Acute (3) Intractable diarrhea Status: Acute (4) Mass of right submandibular region Status: Acute Plan: CONSULT FOR FINE NEEDLE ASPIRATION
== END 2021-11-27 12:30 | disposition home or self-care (01) ==
LOC: MED/SURG
PROVIDERS: ADMIT Internal Medicine; ATTEND Internal Medicine
DX: E87.6 Hypokalemia; R22.1 Localized swelling, mass and lump, neck; Z20.822 Contact with and (suspected) exposure to COVID-19; R19.7 Diarrhea, unspecified; E86.0 Dehydration